=== PATIENT | female | born 1970 | race African-American/Black ===

== ENCOUNTER 2019-01-31 08:47 | Day surgery (SDC) | payer MEDICAID ==
[~2019-01-31 08:47] MED LIST: TYLENOL PM PO
[2019-01-31 11:25] VITALS: BP 132/100
== END 2019-01-31 11:51 | disposition home or self-care (01) ==
LOC: ENDO 08:47 → ORM 11:00 → ENDO 11:51
PROVIDERS: ATTEND Surgery
DX: K64.4 Residual hemorrhoidal skin tags (principal); K64.8 Other hemorrhoids
CPT/HCPCS: J0131